=== PATIENT | female | born 1960 | race Two or more races ===

== ENCOUNTER 2020-11-04 13:35 | Emergency (ER) | payer SELFPAY ==
[~2020-11-04] VITALS: Ht 162.6 cm; Wt 61.2 kg
[2020-11-04 13:43] VITALS: BP 147/77
== END 2020-11-04 14:01 | disposition left against medical advice (07) ==
LOC: ER 13:35
DX: S61.411A Laceration without foreign body of right hand, initial encounter (principal); Z53.21 Procedure and treatment not carried out due to patient leaving prior to being seen by health care provider; X58.XXXA Exposure to other specified factors, initial encounter; Y93.89 Activity, other specified; Y92.89 Other specified places as the place of occurrence of the external cause; Y99.8 Other external cause status

== ENCOUNTER 2021-12-14 15:23 | Emergency (ER) | payer SELFPAY ==
[~2021-12-14] VITALS: Ht 162.6 cm; Wt 63.5 kg
[2021-12-14 15:25] VITALS: BP 144/93
[2021-12-14] MEDS ORDERED: KETOROLAC TROMETH 60MG/2ML VIAL IM ONE (16:15)
[2021-12-14] MEDS ORDERED: diazePAM 5 MG TAB PO ONE (16:15)
[2021-12-14] MEDS ORDERED: LIDOCAINE 5% TOPICAL PATCH TOP ONE (16:15)
[2021-12-14] MEDS ORDERED: DIAZ5TAB PO (16:57)
[2021-12-14] MEDS ORDERED: LIDO1PAD55 EX (16:57)
== END 2021-12-14 21:30 | disposition home or self-care (01) ==
LOC: ER 15:23
DX: M54.41 Lumbago with sciatica, right side (principal)
CPT/HCPCS: 72100; 96372; 99283; J1885